=== PATIENT | female | born 1945 | race Asian ===

== ENCOUNTER 2017-02-23 06:29 | Day surgery (SDC) | payer MEDICARE, OTHER ==
--- NOTE | ~2017-02-23 | EGD ---
EGD REPORT [facility] [address] [address] NAME: PRINCESS VÁZQUEZ : [birth year] STATUS : REG [facility] PAT#: [id number] AGE: 71 ADM/REG DATE : 02/23/17 MR#: [id number] REPORT SERV DATE: 02/23/17 DICTATED BY: GRAYSON SOTELO DATE: 02/23/17 REPORT STATUS : Draft TRANSCRIBED BY: [employer] DATE: 02/23/17 [facility] Patient Name: Princess Vázquez Date of : 1945 Attending MD: GRAYSON SOTELO MD Procedure Date No Time: 02/23/2017 Procedure: Upper GI endoscopy Indications: Epigastric abdominal pain, Dyspepsia, Heartburn Referring MD: Brice Bowen MD Medicines: Propofol per Anesthesia Complications: No immediate complications. Procedure: Pre-Anesthesia Assessment: - ASA Grade Assessment: III - A patient with severe systemic disease. After obtaining informed consent, the endoscope was passed under direct vision. Throughout the procedure, the patient's blood pressure, pulse, and oxygen saturations were monitored continuously. The GIF H190 [id number] was introduced through the mouth, and advanced to the second part of duodenum. The upper GI endoscopy was accomplished without difficulty. The patient tolerated the procedure well. Findings: The examined esophagus was normal. Diffuse moderate inflammation characterized by erosions, erythema and friability was found in the stomach. Biopsies were taken with a cold forceps for histology. The examined duodenum was normal. Biopsies were taken with a cold forceps for histology. Impression: - Normal esophagus. - Chronic gastritis. Biopsied. - Normal examined duodenum. Biopsied. Recommendation: - Discharge patient to home (ambulatory). Procedure Code(s): --- Professional --- 13066, Esophagogastroduodenoscopy, flexible, transoral; with biopsy, single or multiple Diagnosis Code(s): --- Professional --- K29.50, Unspecified chronic gastritis without bleeding R10.13, Epigastric pain K30, Functional dyspepsia EGD REPORT [facility] [address] [facility] [address] NAME: PRINCESS VÁZQUEZ : [birth year] STATUS : REG [facility] PAT#: [id number] AGE: 71 ADM/REG DATE : 02/23/17 MR#: [id number] REPORT SERV DATE: 02/23/17 DICTATED BY: GRAYSON SOTELO. DATE: 02/23/17 REPORT STATUS : Draft TRANSCRIBED BY: [employer] DATE: 02/23/17 R12, Heartburn CPT copyright 2013 [employer]. All rights reserved. The codes documented in this report are preliminary and upon nuclear physics professor review may be revised to meet current compliance requirements. Grayson Sotelo MD GRAYSON SOTELO MD 02/23/2017 9:30 AM This report has been signed electronically. Number of Addenda: 0 Note Initiated On: 02/23/2017 9:18 AM Scope Withdrawal Time 0 hours 0 minutes 0 seconds [address] [place] [address]
--- NOTE | ~2017-02-23 | EGD ---
EGD REPORT [facility] [address] [address] NAME: PRINCESS VÁZQUEZ : [birth year] STATUS : REG [facility] PAT#: [id number] AGE: 71 ADM/REG DATE : 02/23/17 MR#: [id number] REPORT SERV DATE: 02/23/17 DICTATED BY: GRAYSON SOTELO DATE: 02/23/17 REPORT STATUS : Draft TRANSCRIBED BY: [employer] DATE: 02/23/17 [facility] Patient Name: Princess Vázquez Date of : 1945 Attending MD: GRAYSON SOTELO MD Procedure Date No Time: 02/23/2017 Procedure: Colonoscopy Indications: Chronic diarrhea Referring MD: Brice Bowen MD Medicines: Propofol per Anesthesia Complications: No immediate complications. Procedure: Pre-Anesthesia Assessment: - ASA Grade Assessment: III - A patient with severe systemic disease. - Prior to the procedure, a History and Physical was performed, and patient medications and allergies were reviewed. The patient's tolerance of previous anesthesia was also reviewed. The risks and benefits of the procedure and the sedation options and risks were discussed with the patient. All questions were answered, and informed consent was obtained. Prior Anticoagulants: The patient has taken no previous anticoagulant or antiplatelet agents. ASA Grade Assessment: II - A patient with mild systemic disease. After reviewing the risks and benefits, the patient was deemed in satisfactory condition to undergo the procedure. After I obtained informed consent, the scope was passed under direct vision. Throughout the procedure, the patient's blood pressure, pulse, and oxygen saturations were monitored continuously. The PCF [id number] was introduced through the anus and advanced to the cecum, identified by appendiceal orifice and ileocecal valve. The ileocecal valve, appendiceal orifice and rectum were photographed. The entire colon was examined. The colonoscopy was performed without difficulty. The patient tolerated the procedure well. The quality of the bowel preparation was good. The [Anatomical Structures] were photographed. Findings: The perianal and digital rectal examinations were normal. The colon (entire examined portion) appeared normal. Internal hemorrhoids were found during retroflexion and were Grade I (internal hemorrhoids that do not prolapse). EGD REPORT [address] [address] NAME: PRINCESS VÁZQUEZ JACK : [birth year] STATUS : REG [facility] PAT#: [id number] AGE: 71 ADM/REG DATE : 02/23/17 MR#: [id number] REPORT SERV DATE: 02/23/17 DICTATED BY: GRAYSON SOTELO DATE: 02/23/17 REPORT STATUS : Draft TRANSCRIBED BY: [employer] DATE: 02/23/17 Impression: - The entire examined colon is normal. - Internal hemorrhoids. Recommendation: - Patient has a contact number available for emergencies. The signs and symptoms of potential delayed complications were discussed with the patient. Return to normal activities tomorrow. Written discharge instructions were provided to the patient. - Regular diet. - Patient has a contact number available for emergencies. The signs and symptoms of potential delayed complications were discussed with the patient. Return to normal activities tomorrow. Written discharge instructions were provided to the patient. - Continue present medications. Procedure Code(s): --- Professional --- 36758, Colonoscopy, flexible, proximal to splenic flexure; diagnostic, with or without collection of specimen(s) by brushing or washing, with or without colon decompression (separate procedure) Diagnosis Code(s): --- Professional --- K64.0, First degree hemorrhoids K52.9, Noninfective gastroenteritis and colitis, unspecified CPT copyright 2013 [employer]. All rights reserved. The codes documented in this report are preliminary and upon building services engineer review may be revised to meet current compliance requirements. Grayson Sotelo MD GRAYSON SOTELO MD 02/23/2017 9:47 AM This report has been signed electronically. Number of Addenda: 0 Note Initiated On: 02/23/2017 9:28 AM Scope Withdrawal Time 0 hours 5 minutes 18 seconds [address] [place] [id number]
[~2017-02-23 06:29] MED LIST: ASAB PO; DIOVAN320 MG PO; JANUMET1 TA1 PO; NORV10 PO; TENORETIC1 TAB PO; ZOCOR10 PO
== END 2017-02-23 23:59 | disposition home health service (06) ==
LOC: DMU 06:29
PROVIDERS: Internal Medicine Gastroenterology
PROC: 0DB98ZX Excision of Duodenum, Via Natural or Artificial Opening Endoscopic, Diagnostic (ICD-10-PCS; 2017-02-23)
PROC: 0DJD8ZZ Inspection of Lower Intestinal Tract, Via Natural or Artificial Opening Endoscopic (ICD-10-PCS; principal; 2017-02-23 09:00)
PROC: 0DB68ZX Excision of Stomach, Via Natural or Artificial Opening Endoscopic, Diagnostic (ICD-10-PCS; 2017-02-23 09:00)
DX: K29.50 Unspecified chronic gastritis without bleeding (principal); K64.0 First degree hemorrhoids; K52.9 Noninfective gastroenteritis and colitis, unspecified; I10 Essential (primary) hypertension; E78.5 Hyperlipidemia, unspecified; E78.00 Pure hypercholesterolemia, unspecified; E11.9 Type 2 diabetes mellitus without complications; Z79.82 Long term (current) use of aspirin; Z79.899 Other long term (current) drug therapy
CPT/HCPCS: 82962; 88305